=== PATIENT | female | born 1965 | race Caucasian/White ===

== ENCOUNTER → 2016-12-21 | Outpatient (CLI) | payer OTHER | LOC: CIMAGING 15:20 | PROVIDERS: ATTEND Family Medicine | DX: M79.672 Pain in left foot (principal); M25.572 Pain in left ankle and joints of left foot | CPT/HCPCS: 73620-PO ==

== ENCOUNTER → 2017-04-19 | Outpatient (CLI) | payer OTHER | LOC: CIMAGING 13:13 | PROVIDERS: ATTEND Family Medicine | DX: N63.12 Unspecified lump in the right breast, upper inner quadrant (principal) | CPT/HCPCS: 76641-PO; G0204 ==

== ENCOUNTER → 2017-05-01 | Outpatient (CLI) | payer OTHER ==
[~2017-05-01] MED LIST: BUPIVACAINE 0.5% 10 ML SDV ONE; LIDOCAINE 1% 300 MG/30 ML SDV ONE; THROMBIN (BOVINE) 5,000 UNIT VIAL TP ONE
== END ==
LOC: FIMAGING 07:06
PROVIDERS: ATTEND Family Medicine
PROC: 0HBT3ZX Excision of Right Breast, Percutaneous Approach, Diagnostic (ICD-10-PCS; principal; 2017-05-01)
DX: C50.911 Malignant neoplasm of unspecified site of right female breast (principal)
CPT/HCPCS: G0206

== ENCOUNTER 2017-05-16 06:22 | Day surgery (SDC) | payer OTHER ==
[2017-05-16 07:17] VITALS: PULSE 90; RESP 16
[2017-05-16] MEDS ORDERED: LR 1,000 ML IV ONE (07:26)
[2017-05-16] MEDS ORDERED: LIDOCAINE 1% 2 ML INJ ID PRN (07:27)
[2017-05-16] MEDS ORDERED: LIDOCAINE 1% 300 MG/30 ML SDV ONE ×2 (08:34→09:33)
[2017-05-16] MEDS ORDERED: BUPIVACAINE 0.5% 30 ML SDV ONE (09:33)
--- NOTE | 2017-05-16 10:30 | PDHPUP ---
History & Physical Update H&P update statement: This history and physical update is based on an assessment of the patient which was completed after admission or registration (within 24 hours), but prior to the surgery/procedure. H&P update: H&P reviewed & patient examined, no change in patient's condition since H&P completed
--- NOTE | 2017-05-16 10:34 | POSTOPPROG ---
Post Op Note Date of Operation: 05/16/17 Surgeon: Hussein Majano Anesthesiologist: Thierry Anesthesia: GET(General Endotracheal) Pre-op Diagnosis: Right Breast Cancer Post-op Diagnosis: Same Procedure: Right partial mastectomy with axillary SLNB Inf/Abcess present in the surg proc area at time of surgery?: No EBL: Minimal Specimen(s): breast, margins, nodes
--- NOTE | 2017-05-16 10:51 | PDANEPAE ---
ANE History of Present Illness Right breast C Axillary node ANE Past Medical History - Cardiovascular History Hx Hypertension: No Hx Arrhythmias: No Hx Chest Pain: No Hx Coronary Artery / Peripheral Vascular Disease: No Hx CHF / Valvular Disease: No Hx Palpitations: No - Pulmonary History Hx COPD: No Hx Asthma/Reactive Airway Disease: No Hx Recent Upper Respiratory Infection: No Hx Oxygen in Use at Home: No Hx Sleep Apnea: No Sleep Apnea Screening Result - Last Documented: Negative - Neurologic History Hx Cerebrovascular Accident: No Hx Seizures: No Hx Dementia: No Neurologic History Comment: neck and back pain - Endocrine History Hx Diabetes: No Hypothyroid: No Hyperthyroid: No - Renal History Hx Renal Disorders: Yes Renal History Comment: hx of kidney stones - Liver History Hx Hepatic Disorders: No - Neurological & Psychiatric Hx Hx Neurological and Psychiatric Disorders: Yes Neurological / Psychiatric History Comment: anxiety. depression - Cancer History Hx Cancer: No - Congenital Disorder History Hx Congenital Disorders: No - GI History GERD: no Hx Gastrointestinal Disorders: No - Other Health History Other Health History: wears glasses/ contacts. fibromyalgia. lupus - Chronic Pain History Chronic Pain: Yes (fibromyalgia and lupus, chronic pain to neck and right shoulder) - Surgical History Prior Surgeries: uterine ablation. cyst removed from breast 2009 ANE Review of Systems Review of Systems: - Exercise capacity METS (RN): 4 METS ANE Patient History - Allergies Allergies/Adverse Reactions: amoxicillin Allergy (Verified 05/10/17 15:37) Rash silver [From Tegaderm AG Mesh] Allergy (Verified 05/10/17 15:37) Rash - Home Medications Home Medications: BIOTIN 05/10/17 [Last Taken 1 Week Ago ~05/09/17] DIAZEPAM 05/10/17 [Last Taken 3 Days Ago ~05/13/17] Eszopiclone 05/10/17 [Last Taken 05/15/17 22:00] Hydroxychloroquine Sulfate 05/10/17 [Last Taken 05/15/17 08:00] LORAZEPAM 05/10/17 [Last Taken 05/15/17 22:00] Nabumetone 05/10/17 [Last Taken 05/02/17] Potassium 05/10/17 [Last Taken 1 Week Ago ~05/09/17] VENLAFAXINE HCL 05/10/17 [Last Taken 05/15/17 08:00] Vitamin B12 05/10/17 [Last Taken 1 Week Ago ~05/09/17] buPROPion XL 05/10/17 [Last Taken 05/15/17 08:00] Cholecalciferol (Vitamin D3) [Vitamin D3] 05/16/17 [Last Taken 1 Week Ago ~] - NPO status NPO Since - Liquids (Date): 05/15/17 NPO Since - Liquids (Time): 22:00 NPO Since - Solids (Date): 05/15/17 NPO Since - Solids (Time): 18:00 - Anes Hx Anes Hx: no prior problems - Smoking Hx Smoking Status: Never smoked - Family Anes Hx Family Anes Hx: none Family Hx Anesthesia Complications: none ANE Labs/Vital Signs - Vital Signs Blood Pressure: 128/74 Heart Rate: 90 Respiratory Rate: 16 O2 Sat (%): 92 Height: 154.94 cm Weight: 129.274 kg ANE Physical Exam - Airway Neck exam: FROM Mallampati Score: Class 2 Mouth exam: normal dental/mouth exam - Pulmonary Pulmonary: no respiratory distress, no rales or rhonchi - Cardiovascular Cardiovascular: regular rate and rhythym, no murmur, rub, or gallop - ASA Status ASA Status: III ANE Anesthesia Plan Anesthesia Plan: general endotracheal anesthesia Specialized Airway: video laryngoscope
[2017-05-16] MEDS ORDERED: MIDAZOLAM 2 MG/2 ML VIAL ONE ×2 (11:01→11:05)
[2017-05-16] MEDS ORDERED: PROPOFOL/EMULSION 500 MG/50 ML BOTTLE IV ONE ×2 (11:05→11:31)
[2017-05-16] MEDS ORDERED: fentaNYL 100 MCG/2 ML INJ ONE ×3 (11:05→11:42)
[2017-05-16] MEDS ORDERED: LIDOCAINE 2% 5 ML SDV ONE (11:29)
[2017-05-16] MEDS ORDERED: DEXAMETHASONE 4 MG/ML VIAL ONE ×2 (11:29→11:35)
[2017-05-16] MEDS ORDERED: SUCCINYLCHOLINE CHLORIDE*ANESTHESIA ONLY*200 MG/10 ML SYR IVP ONE (11:29)
[2017-05-16] MEDS ORDERED: ROCURONIUM 50 MG/5 ML VIAL ONE (11:29)
[2017-05-16] MEDS ORDERED: GLYCOPYRROLATE 0.2 MG/1 ML VIAL ONE (11:29)
[2017-05-16] MEDS ORDERED: ONDANSETRON 4 MG/2 ML VIAL ONE (12:35)
[2017-05-16] MEDS ORDERED: NALOXONE HCL 0.4 MG/ML INJ IVP PRN (14:19)
[2017-05-16] MEDS ORDERED: HYDROCODONE/APAP 5/325 TAB PO PRN (14:19)
[2017-05-16] MEDS ORDERED: ONDANSETRON 4 MG/2 ML VIAL IVP PRN (14:19)
[2017-05-16] MEDS ORDERED: OXYCODONE/APAP 5/325 TAB PO PRN (14:19)
[2017-05-16] MEDS ORDERED: PROMETHAZINE HCL 25 MG/ML INJ IVP PRN (14:19)
[2017-05-16] MEDS ORDERED: fentaNYL 100 MCG/2 ML INJ IVP PRN (14:19)
[2017-05-16] MEDS ORDERED: HYDROmorphONE/DILAUDID 1 MG/ML INJ IVP PRN (14:19)
[2017-05-16] MEDS ORDERED: LR 500 ML IV PRN (14:19)
[2017-05-16] MEDS ORDERED: MIDAZOLAM 2 MG/2 ML VIAL IVP ONE (14:20)
--- NOTE | 2017-05-16 14:20 | GOP ---
[f rep st] OPERATIVE REPORT DATE OF OPERATION: 05/16/2017 SURGEON: Hussein Majano MD ANESTHESIA: General. ANESTHESIOLOGIST: Dr. Guadarrama. PREOPERATIVE DIAGNOSIS: Right breast carcinoma. POSTOPERATIVE DIAGNOSIS: Right breast carcinoma. PROCEDURE PERFORMED: Right partial mastectomy with ultrasound localization with axillary sentinel node sampling. FINDINGS: As Below. INDICATIONS: 51-year-old female with a newly diagnosed right 12 o'clock, infiltrating ductal carcinoma. She has a clinically negative axilla. She is undergoing surgical excision at this time. Risks and benefits were explained of bleeding, infection, tumor recurrence, need for additional margin resection, arm edema, nerve injury, as well as a roles for a completion axillary dissection. All questions were answered. She desires to proceed. DESCRIPTION OF PROCEDURE: General anesthesia was induced upon returning from ultrasound localization and lymphoscintigraphy. Local anesthetic was infiltrated. A 12 o'clock circumareolar incision was created. Using electrocautery and sharp dissection, the localization wire was identified from beneath the skin. The wire was transected and brought from beneath the skin as well. The wire was completely excised and removed from the breast cavity. Specimen was tagged for orientation. Intraoperative ultrasonography showed satisfactory clip inclusion, as well as a centrally located tumor with the wire running through it. Satisfactory hemostasis was assured throughout the breast defect. Multiple hemoclips were placed radially to allow for possible consideration of accelerated breast radiation postoperative if warranted. The defect was closed in layers with absorbables by Dermabond. The axilla was subsequently opened. A conglomeration of the firm enlarged nodes were identified. These measured 7000 units on the gamma counter. There were probably 3 nodes adherent to each other. The remaining nodes were all soft and fatty throughout the deep axilla. Background activity was less than 30 units throughout. These were sent for permanent specimen processing. Satisfactory hemostasis was assured throughout. The wound was closed again in layers with absorbables by Dermabond. The patient was taken to recovery awake uneventfully. /[id number]/MODL MTDD
[2017-05-16 15:56] VITALS: BP 141/84; TEMP 97.9; O2SAT 90
== END 2017-05-16 15:54 | disposition home or self-care (01) ==
LOC: FSGY 06:22
PROVIDERS: ATTEND Surgery
PROC: 0HHT3YZ Insertion of Other Device into Right Breast, Percutaneous Approach (ICD-10-PCS; 2017-05-16)
PROC: 3E0W3KZ Introduction of Other Diagnostic Substance into Lymphatics, Percutaneous Approach (ICD-10-PCS; 2017-05-16)
PROC: 07B50ZX Excision of Right Axillary Lymphatic, Open Approach, Diagnostic (ICD-10-PCS; principal; 2017-05-16 10:00)
PROC: 0HBT0ZZ Excision of Right Breast, Open Approach (ICD-10-PCS; principal; 2017-05-16 10:00)
DX: C50.911 Malignant neoplasm of unspecified site of right female breast (principal); Z17.0 Estrogen receptor positive status [ER+]; M32.9 Systemic lupus erythematosus, unspecified; F41.9 Anxiety disorder, unspecified; F32.9 Major depressive disorder, single episode, unspecified; Z87.442 Personal history of urinary calculi; Z88.0 Allergy status to penicillin
CPT/HCPCS: 19125; 19281; 38525; 38792; A9520; J0171; J0330; J1100; J2250; J2405; J2704; J3010

== ENCOUNTER → 2017-12-22 | Outpatient (CLI) | payer OTHER | LOC: BRMIMAGING 09:27 | PROVIDERS: ATTEND Internal Medicine Rheumatology | DX: M25.531 Pain in right wrist (principal); M25.532 Pain in left wrist | CPT/HCPCS: 73120-PO ==

== ENCOUNTER → 2018-03-30 | Outpatient (CLI) | payer OTHER | LOC: CIMAGING 07:18 | PROVIDERS: ATTEND Radiology Radiation Oncology | DX: Z12.31 Encounter for screening mammogram for malignant neoplasm of breast (principal); Z85.3 Personal history of malignant neoplasm of breast ==